=== PATIENT | female | born 1995 | race Caucasian/White ===

== ENCOUNTER → 2021-12-17 | Outpatient (CLI) | payer OTHER | LOC: COL.RAD 10:06 | DX: M54.6 Pain in thoracic spine (principal); M54.50 Low back pain, unspecified; M46.1 Sacroiliitis, not elsewhere classified ==

== ENCOUNTER → 2022-05-20 | Outpatient (CLI) | payer OTHER | LOC: MHCPAIN 14:32 | DX: M53.3 Sacrococcygeal disorders, not elsewhere classified (principal); M41.34 Thoracogenic scoliosis, thoracic region; M79.18 Myalgia, other site; G89.29 Other chronic pain | CPT/HCPCS: G0463 ==

== ENCOUNTER → 2022-05-23 | Outpatient (CLI) | payer OTHER | LOC: MHCPAIN 07:34 | DX: M53.3 Sacrococcygeal disorders, not elsewhere classified (principal); M79.18 Myalgia, other site | CPT/HCPCS: J1040; Q9967 ==

== ENCOUNTER → 2023-01-08 | Outpatient (CLI) | payer OTHER | LOC: MHCPAIN 08:08 | DX: M79.18 Myalgia, other site (principal); M25.511 Pain in right shoulder; M54.6 Pain in thoracic spine; M54.50 Low back pain, unspecified | CPT/HCPCS: G0463 ==